=== PATIENT | female | born 1985 | race African-American/Black ===

== ENCOUNTER 2018-10-22 06:15 | Inpatient (IN) | payer OTHER ==
[2018-10-22] MEDS ORDERED: OXYTOCIN 30 UNITS/LR 500 ML IV ×4 (07:30→13:00)
[2018-10-22] MEDS ORDERED: CARBOPROST 250 MCG INJ IM ×2 (07:30→13:00)
[2018-10-22] MEDS ORDERED: METHYLERGONOVINE 0.2 MG INJ IM ×2 (07:30→13:00)
[2018-10-22] MEDS ORDERED: MISOPROSTOL 200 MCG TAB PR ×2 (07:30→13:00)
[2018-10-22] MEDS: LACTATED RINGER'S 1,000 ML IV ×2 (07:38→15:58)
[2018-10-22 07:41] LABS: ADD MAN DIFF? NO
[2018-10-22 07:43] LABS: BASOPHILS % 0.3 % (0.0-2.0); EOSINOPHILS # 0.1 10^3/ul (0.0-0.5); EOSINOPHILS % 2.1 % (0.0-7.0); HEMATOCRIT 38.3 % (37.0-47.0); HEMOGLOBIN 12.7 g/dl (12.0-16.0); LYMPHOCYTES # 1.5 10^3/ul (0.8-2.9); LYMPHOCYTES % 23.9 % (15.0-51.0); MEAN CORPUSCULAR HEMOGLOBIN 31.4 pg (29.0-33.0); MEAN CORPUSCULAR HGB CONC 33.2 g/dl (32.0-37.0); MEAN CORPUSCULAR VOLUME 94.6 fl (82.0-101.0); MEAN PLATELET VOLUME 12.1 fl (7.4-10.4); MONOCYTE # 0.9 10^3/ul (0.3-0.9); NEUTROPHIL # 3.6 10^3/ul (1.6-7.5); NEUTROPHILS % 58.4 % (39.0-77.0); PLATELET COUNT 142 10^3/UL (140-415); RED BLOOD COUNT 4.05 10^6/ul (4.20-5.40); RED CELL DISTRIBUTION WIDTH 12.8 % (11.5-14.5)
[2018-10-22 07:43] LABS: WHITE BLOOD COUNT 6.1 10^3/ul (4.8-10.8)
[2018-10-22] MEDS ORDERED: CITRIC ACID/NA CITRATE 30 ML CUP (07:54)
[2018-10-22] MEDS: CITRIC ACID/NA CITRATE 30 ML CUP PO (07:57)
[2018-10-22 08:03] LABS: INR 0.85; PROTIME 11.7 Sec (11.9-14.9); PT RATIO 0.9
[2018-10-22 08:04] LABS: PARTIAL THROMBOPLASTIN TIME 24.5 Sec (23.0-35.0)
[2018-10-22] MEDS ORDERED: METOCLOPRAMIDE 10 MG INJ (08:24)
[2018-10-22] MEDS ORDERED: ONDANSETRON 4 MG INJ (08:24)
[2018-10-22] MEDS ORDERED: morphine SULFATE/PF (10 MG/10 ML) INJ (08:24)
[2018-10-22] MEDS ORDERED: KETOROLAC 30 MG INJ (08:24)
[2018-10-22 08:32] LABS: HEPATITIS B SURFACE ANTIGEN NEGATIVE (NEGATIVE)
[2018-10-22] MEDS ORDERED: FENTAnyl 50 MCG/ML VIAL (08:44)
[2018-10-22] MEDS ORDERED: NALOXONE (0.4 MG/ML) INJ IV (10:00)
[2018-10-22] MEDS ORDERED: morphine 2 MG INJ IV ×3 (10:00)
[2018-10-22] MEDS ORDERED: DIPHENHYDRAMINE 50 MG INJ IV (10:00)
[2018-10-22] MEDS ORDERED: KETOROLAC 30 MG INJ IV (10:00)
[2018-10-22] MEDS ORDERED: morphine (1 MG/ML) 10ML SYRINGE IV ×3 (10:00)
[2018-10-22] MEDS ORDERED: ONDANSETRON 4 MG INJ IV ×3 (10:00→13:00)
[2018-10-22] MEDS: CEFAZOLIN 2 GM/50 ML (PMX) 50 ML IVPB (10:38)
[2018-10-22] MEDS: OXYTOCIN 30 UNITS/LR 500 ML IV (10:43)
[2018-10-22] MEDS ORDERED: ZOLPIDEM 5 MG TAB PO (13:00)
[2018-10-22] MEDS: DIPHENHYDRAMINE 50 MG INJ IV ×2 (14:37→21:05)
[2018-10-22 15:04] LABS: RAPID PLASMA REAGIN NONREACTIVE (NR)
[2018-10-22] MEDS: SENNA/DOCUSATE NA (8.6MG/50MG) TAB PO (21:05)
[2018-10-23] MEDS: LACTATED RINGER'S 1,000 ML IV (00:57)
[2018-10-23] MEDS: KETOROLAC 30 MG INJ IV (02:41)
[2018-10-23] MEDS: DIPHENHYDRAMINE 50 MG INJ IV (04:24)
[2018-10-23 08:06] LABS: ADD MAN DIFF? NO
[2018-10-23 08:12] LABS: BASOPHILS % 0.3 % (0.0-2.0); EOSINOPHILS # 0.1 10^3/ul (0.0-0.5); EOSINOPHILS % 0.6 % (0.0-7.0); HEMATOCRIT 32.7 % (37.0-47.0); HEMOGLOBIN 10.5 g/dl (12.0-16.0); LYMPHOCYTES # 1.2 10^3/ul (0.8-2.9); LYMPHOCYTES % 11.3 % (15.0-51.0); MEAN CORPUSCULAR HEMOGLOBIN 32.1 pg (29.0-33.0); MEAN CORPUSCULAR HGB CONC 32.1 g/dl (32.0-37.0); MONOCYTE # 1.1 10^3/ul (0.3-0.9); MONOCYTES % 10.2 % (0.0-11.0); NEUTROPHIL # 7.9 10^3/ul (1.6-7.5); NEUTROPHILS % 76.9 % (39.0-77.0); PLATELET COUNT 146 10^3/UL (140-415); RED BLOOD COUNT 3.27 10^6/ul (4.20-5.40); RED CELL DISTRIBUTION WIDTH 12.8 % (11.5-14.5)
[2018-10-23 08:12] LABS: WHITE BLOOD COUNT 10.3 10^3/ul (4.8-10.8)
[2018-10-23] MEDS: SENNA/DOCUSATE NA (8.6MG/50MG) TAB PO ×2 (09:23→22:23)
[2018-10-23] MEDS: OXYCODONE/ACETAMINOPHEN (5/325) TAB PO ×3 (09:37→22:24)
[2018-10-23] MEDS: LANOLIN HPA 1 PKT TOP (09:37)
[2018-10-23 11:44] LABS: ANISOCYTOSIS 1+ (0-0); BAND NEUTROPHILS #M 0.7 10^3/ul (0.0-0.6); BAND NEUTROPHILS % (M) 7 % (0-4); BASOPHIL #M 0.1 10^3/ul (0.0-0.0); BASOPHILS % (M) 1 % (0-2); EOSINOPHILS % (M) 1 % (0-7); GIANT THROMBO% (M) 2 % (0-0); LYMPHOCYTES #M 1.8 10^3/ul (0.8-2.9); LYMPHOCYTES % (M) 18 % (15-51); MONOCYTE #M 0.4 10^3/ul (0.3-0.9); MONOCYTES % (M) 4 % (0-11); PLATELET ESTIMATE NORMAL; SEG NEUT #M 7.2 10^3/ul (1.6-7.5); SEGMENTED NEUTROPHILS (M) % 69 % (39-77); SMUDGE%M 43 % (0-0)
[2018-10-23] MEDS: IBUPROFEN 600 MG TAB PO ×3 (12:08→23:52)
[2018-10-24] MEDS: IBUPROFEN 600 MG TAB PO ×3 (06:49→17:47)
[2018-10-24] MEDS: SENNA/DOCUSATE NA (8.6MG/50MG) TAB PO ×2 (08:56→21:27)
[2018-10-24] MEDS: OXYCODONE/ACETAMINOPHEN (5/325) TAB PO (16:58)
[2018-10-24] MEDS: MAGNESIUM HYDROXIDE 30ML CUP PO (21:27)
[2018-10-25] MEDS: IBUPROFEN 600 MG TAB PO ×3 (00:28→11:40)
[2018-10-25] MEDS: MAGNESIUM HYDROXIDE 30ML CUP PO (09:29)
[2018-10-25] MEDS: SENNA/DOCUSATE NA (8.6MG/50MG) TAB PO (09:29)
[2018-10-25] MEDS: DIPHTH/TET/ACEL PERTUSS (ADULT) 0.5 ML VIAL IM* (09:30)
== END 2018-10-25 16:09 | disposition home or self-care (01) | DRG 788 ==
LOC: PP1 10-24 21:28 → L-D 06:15 → PP1 12:46
PROVIDERS: Obstetrics & Gynecology
PROC: 10D00Z1 Extraction of Products of Conception, Low, Open Approach (ICD-10-PCS; principal; 2018-10-22 07:30)
DX: O34.211 Maternal care for low transverse scar from previous cesarean delivery (principal); Z3A.39 39 weeks gestation of pregnancy; Z37.0 Single live birth
CPT/HCPCS: 85025; 85610; 85730; 86592; 86850; 86900; 86901; 87340; 99464